=== PATIENT | male | born 1960 | race Two or more races ===

== ENCOUNTER 2023-12-30 07:25 | Inpatient (IN) | payer MEDICARE, MEDICAID ==
[~2023-12-30] VITALS: Ht 177.8 cm; Wt 68.6 kg
[2023-12-30 07:45] VITALS: PULSE 113; RESP 20; O2SAT 97
[2023-12-30] MEDS: LORazepam 2MG/ML-1ML VIAL IV ONE (07:46)
[2023-12-30] MEDS: LORazepam 2MG/ML-1ML VIAL IM ONE (07:47)
[2023-12-30] MEDS: levETIRAcetam 1000 mg/100ml 100 ML IV ONE (07:51)
[2023-12-30] MEDS: SODIUM CHLORIDE 0.9% 1,000 ML IV ONE ×2 (07:51→09:11)
[2023-12-30 08:12] LABS: Basophils # (auto) 0.1 10 ^3/uL (0-0.2); Basophils % (auto) 0.7 % (0.0-2.0); Eosinophils # (auto) 0.3 10 ^3/uL (0-0.8); Eosinophils % (auto) 3.5 % (0.0-7.0); Hematocrit 34.5 % (41.0-53.0); Hemoglobin 11.6 g/dL (13.5-17.5); Lymphocytes # (auto) 1.3 10 ^3/uL (0.4-5.4); Lymphocytes % (auto) 16.1 % (10.0-50.0); Mean Corpuscular Hemoglobin 29.8 pg (28.0-32.0); Mean Corpuscular Hgb Conc. 33.6 g/dL (32.0-36.0); Mean Corpuscular Volume 88.7 fL (80.0-100.0); Monocytes # (auto) 0.5 10 ^3/uL (0-1.3); Monocytes % (auto) 6.1 % (0.0-12.0); Neutrophils % (auto) 73.6 % (37.0-80.0); Red Blood Cells 3.89 10^6/uL (4.5-5.90); Red Cell Distribution Width 13.5 % (11.8-14.3); White Blood Cell 8.1 10^3/uL (4.4-10.8)
[2023-12-30 08:23] LABS: Chloride 103 mmol/L (98-107); Potassium 3.8 mmol/L (3.5-5.1); Sodium 138 mmol/L (136-145)
[2023-12-30 08:24] LABS: Anion Gap 12 (5-15); Calcium 9.7 mg/dL (8.7-10.4); Carbon Dioxide 23 mmol/L (20-30)
[2023-12-30 08:29] LABS: BUN/Creatinine Ratio 15.8 (10.0-20.0); Blood Urea Nitrogen 16 mg/dL (9-23); Glucose 173 mg/dL (74-106)
[2023-12-30] MEDS ORDERED: DOCUSATE SOD 100 MG CAP PO PRN (11:00)
[2023-12-30] MEDS ORDERED: LORazepam 2MG/ML-1ML VIAL IV PRN ×2 (11:00)
[2023-12-30] MEDS ORDERED: SODIUM CHLORIDE 0.9% 1,000 ML IV SCH (11:00)
[2023-12-30] MEDS ORDERED: ONDANSETRON HCL 4 MG/2 ML VIAL IV PRN (11:00)
[2023-12-30] MEDS ORDERED: NITROGLYCERIN 0.4 MG SL TAB SL PRN (11:00)
[2023-12-30] MEDS ORDERED: MORPHINE SULFATE INJ 2 MG/ml SYRG IV PRN (11:00)
[2023-12-30] MEDS: SODIUM CHLORIDE 0.9% 1,000 ML IV SCH (16:54)
[2023-12-30] MEDS ORDERED: HYDROcodone-ACET 5/325MG TAB PO PRN (21:45)
[2023-12-30] MEDS: levETIRAcetam 1000 mg/100ml 100 ML IV SCH (22:26)
[2023-12-30 22:27] VITALS: PULSE 99; RESP 14; O2SAT 100
[2023-12-30 23:08] VITALS: PULSE 120; RESP 20; O2SAT 98
[2023-12-31] VITALS (7 sets, daily range): BP systolic 127–162; BP diastolic 81–110; PULSE 97–101; RESP 16–19; TEMP 97.7–98.4; O2SAT 97–99
[2023-12-31 05:04] LABS: Basophils # (auto) 0 10 ^3/uL (0-0.2); Basophils % (auto) 0.8 % (0.0-2.0); Eosinophils # (auto) 0.3 10 ^3/uL (0-0.8); Hemoglobin 11.4 g/dL (13.5-17.5); Lymphocytes # (auto) 1.1 10 ^3/uL (0.4-5.4); Lymphocytes % (auto) 18.1 % (10.0-50.0); Mean Corpuscular Hemoglobin 30.2 pg (28.0-32.0); Mean Corpuscular Hgb Conc. 34.5 g/dL (32.0-36.0); Mean Corpuscular Volume 87.5 fL (80.0-100.0); Monocytes # (auto) 0.6 10 ^3/uL (0-1.3); Monocytes % (auto) 9.6 % (0.0-12.0); Neutrophils % (auto) 66.5 % (37.0-80.0); Red Blood Cells 3.77 10^6/uL (4.5-5.90); Red Cell Distribution Width 13.3 % (11.8-14.3)
[2023-12-31 05:27] LABS: Albumin 3.8 g/dL (3.2-4.8); Alkaline Phosphatase 43 U/L (46-116); Anion Gap 7 (5-15); Aspartate Aminotransferase 12 U/L (13-40); BUN/Creatinine Ratio 14.9 (10.0-20.0); Blood Urea Nitrogen 11 mg/dL (9-23); Calcium 9.1 mg/dL (8.7-10.4); Carbon Dioxide 27 mmol/L (20-30); Chloride 106 mmol/L (98-107); Glucose 102 mg/dL (74-106); Sodium 140 mmol/L (136-145)
[2023-12-31 05:28] LABS: Bilirubin, Total 0.6 mg/dL (0.2-1.0); Total Protein 5.8 g/dL (5.7-8.2)
[2023-12-31 06:10] LABS: Alanine Aminotransferase 21 U/L (7-40)
[2023-12-31 11:10] LABS: Urine Bacteria None Seen /hpf (None Seen)
[2023-12-31 11:28] LABS: Urine Blood Negative /uL (Negative); Urine Clarity Clear (Clear); Urine Color Light-Yellow (Yellow); Urine Protein, UAD Negative (Negative); Urine Specific Gravity 1.014 (1.001-1.035); Urine Urobilinogen Normal (Negative); Urine WBC 1 /hpf (0 - 3); Urine pH 5.5 (5.0-9.0)
[2023-12-31 11:34] LABS: Amphetamine Screen, Urine Neg (NEGATIVE)
[2023-12-31 11:36] LABS: Barbiturate Scree,Urine Neg (NEGATIVE); Benzodiazephine Screen, Urine Neg (NEGATIVE); Cannabinoid Screen, Urine Pos (NEGATIVE); Cocaine Screen, Urine Neg (NEGATIVE); Opiate Scree,Urine Neg (NEGATIVE); Phencyclidine Screen, Urine Neg (NEGATIVE)
[2023-12-31] MEDS: hydrALAZINE HCL 20 MG/ML VL IV PRN (20:40)
[2024-01-01] VITALS (7 sets, daily range): BP systolic 138–160; BP diastolic 92–108; PULSE 90–106; RESP 18; TEMP 98–98.7; O2SAT 93–100
[2024-01-01] MEDS: ERGOCALCIFEROL 50,000 UNIT(1.25MG) CAP PO SCH (07:00)
[2024-01-01 11:24] LABS: Chloride 102 mmol/L (98-107); Potassium 3.9 mmol/L (3.5-5.1); Sodium 137 mmol/L (136-145)
[2024-01-01 11:25] LABS: Anion Gap 7 (5-15); Calcium 9.8 mg/dL (8.7-10.4); Carbon Dioxide 28 mmol/L (20-30)
[2024-01-01 11:30] LABS: Blood Urea Nitrogen 12 mg/dL (9-23); Glucose 141 mg/dL (74-106)
[2024-01-01] MEDS ORDERED: KEP500T PO (14:18)
[2024-01-01] MEDS ORDERED: LOSA-535 PO (14:18)
== END 2024-01-01 17:22 | disposition home or self-care (01) | DRG 100 ==
LOC: ER 07:25 → EDBD 07:25 → OVERFLOW 10:55 → CENTRAL 23:02
PROVIDERS: ADMIT Internal Medicine Geriatric Medicine; ATTEND Internal Medicine Geriatric Medicine
DX: G40.409 Other generalized epilepsy and epileptic syndromes, not intractable, without status epilepticus (principal); N17.0 Acute kidney failure with tubular necrosis; I16.0 Hypertensive urgency; E11.9 Type 2 diabetes mellitus without complications; F12.10 Cannabis abuse, uncomplicated; E55.9 Vitamin D deficiency, unspecified; Z91.148 Patient's other noncompliance with medication regimen for other reason
CPT/HCPCS: 36415; 70450; 80048; 80053; 80307; 81001; 82306; 82607; 83036; 84443; 85025; 93005; 96365; 96366; 96375; 99291; G0378